=== PATIENT | male | born 1970 | race Caucasian/White ===

== ENCOUNTER → 2020-10-28 15:08 | Outpatient (CLI) | payer OTHER, SELFPAY ==
[2020-10-28 16:22] LABS: COVID19 -Nasal RAPID Negative (Negative)
== END ==
PROVIDERS: PCP Physician Assistant; Visit Provider Surgery
DX: Z01.812 Encounter for preprocedural laboratory examination (principal); Z20.822 Contact with and (suspected) exposure to COVID-19
CPT/HCPCS: 87635; C9803

== ENCOUNTER 2020-10-29 11:57 | Day surgery (SDC) | payer OTHER, SELFPAY ==
[2020-10-29 12:17] VITALS: BP 122/77; PULSE 78; RESP 14; TEMP 36.5; O2SAT 97; BMI 24.4
[2020-10-29] MEDS: LACTATED RINGERS 1,000 ML 200 ML IV (12:37)
--- NOTE | 2020-10-29 13:07 | PM.HP.1 ---
History of Present Illness History of Present Illness Date Patient Seen: 10/29/20 Time Patient Seen: 13:07 Chief complaint: DX COLONOSCOPY Narrative: 49-year-old man here for colonoscopy secondary change in bowel habit. Please see the HP from 09/24/2020 for detail. No interval changes in health. Patient History Medical History Dysuria Family history of bladder cancer Slow urinary stream Splitting of urinary stream Surgical History H/O umbilical hernia repair History of inguinal hernia repair, bilateral Family & Social History Family History Father Cancer Social History: household members spouse,children Tobacco & Substance use: Smoking Status Never smoker alcohol intake current alcohol intake frequency a few times a week Substance Use Type does not use Meds Home Medications and Allergies Home Medications Medication Instructions Recorded Confirmed Type No Known Home Medications 09/24/20 10/29/20 History Allergies Allergy/AdvReac Type Severity Reaction Status Date / Time No Known Drug Allergies Allergy Verified 10/07/20 14:03 Exam Vital Signs (past 8 hours): - 10/29/20 12:17 Temperature 97.7 F Pulse Rate 78 Respiratory Rate 14 Blood Pressure 122/77 Pulse Oximetry 97 Oxygen Delivery Method Room Air Narrative Exam Narrative: Constitutional-he is oriented to person, place and time. No apparent distress Cardiovascular- regular rate, no peripheral edema Pulmonary-unlabored respiratory effort, no audible wheezing Abdominal-soft, non-tender, non-distended Musculoskeletal-no cyanosis or clubbing Neurological-nonfocal, normal strength throughout, normal gait. Skin-warm and dry Assessment & Plan Assessment and plan (1) Change in bowel habits: Status: Acute Assessment & Plan narrative: The patient requires colorectal screening and colonoscopy is recommended. Technical details were discussed. Risks, benefits, alternatives explained. Risks including but not limited to myocardial infarction, aspiration, bleeding, pain, missed lesion, incomplete examination, need for further radiographic studies, colonic perforation, and need for major abdominal surgery were discussed. All questions were answered to their satisfaction, and they are in agreement with this plan. Time Spent With Patient Critical Care time: I spent a total of [] minutes of critical care time on this patient's care today; this time is exclusive of procedural time.
[2020-10-29] MEDS: fentaNYL 250 MCG/5 ML INJ IV (13:37)
--- NOTE | 2020-10-29 13:37 | PM.OP.ENDO ---
Operative Date/Time/Diagnoses Date of procedure: 10/29/20 Time of procedure: 13:37 Pre-op diagnosis: change in bowel habit Post-op diagnosis: same Procedure & Clinicians Study performed: colonoscopy Same procedure as scheduled: Yes Indications: change in bowel function Surgeon: Bert Wisdom Procedure Notes Procedure in detail: Medications: Conscious sedation using 5mg IV midazolam and 100mcg IV of fentanyl The history and physical was performed/updated and the patient is ASA class is 1. The procedure was discussed in detail with the patient. Potential risks complications including infection, bleeding, missed diagnosis, perforation, need for surgery, and were explained. Their questions were answered and informed consent was obtained. Patient was brought to the procedure room and placed standard monitoring equipment. The patient's vital signs were monitored continuously throughout the entire procedure. Prior to starting time-out was performed. The patient was placed in the left lateral recumbent position. Procedural sedation was administered. Examination began with a thorough inspection of the perianal area there was no evidence of fissures, fistulae, external hemorrhoids or cutaneous malignancy. The colonoscopy scope was then placed into the anal canal and was advanced to the cecum, which was identified by the ileocecal valve, the appendiceal orifice and the confluence of the taenia. The scope was then slowly withdrawn examining colon thoroughly in all directions, irrigating it of any residual stool. FINDINGS 1. No masses or polyps 2. No diverticulosis 3. Normal healthy colon The patient tolerated the procedure well. They will be discharged once criteria are met. The prep was of good/excellent quality. The withdrawl time was 6 minutes. The sedation time was 22 minutes. Specimen(s): none sent Complications: none Impression: Normal colonoscopy Post-procedure Recommendations: Colonscopy in 10 years Disposition: same day surgery
[2020-10-29] MEDS: MIDAZOLAM 5 MG/5 ML VIAL IV (13:38)
[2020-10-29 13:42] VITALS: BP 113/76; PULSE 69; RESP 14; TEMP 36.4; O2SAT 99
[2020-10-29 13:45] VITALS: BP 113/81; PULSE 70; RESP 16; O2SAT 98
[2020-10-29 13:56] VITALS: BP 125/83; PULSE 68; RESP 17; O2SAT 99
== END 2020-10-29 14:15 | disposition home or self-care (01) ==
PROVIDERS: PCP Physician Assistant; Referring Provider Surgery; Visit Provider Surgery
PROC: 0DJD8ZZ Inspection of Lower Intestinal Tract, Via Natural or Artificial Opening Endoscopic (ICD-10-PCS; CPT 45378; principal; 2020-10-29 13:00)
DX: R19.4 Change in bowel habit (principal)
CPT/HCPCS: 45378; 99152; J2250; J3010